=== PATIENT | female | born 1950 | race Caucasian/White ===

== ENCOUNTER 2018-10-01 10:36 | Emergency (ER) | payer MEDICARE, BC, SELFPAY ==
[2018-10-01 10:59] VITALS: BP 161/64; PULSE 74; RESP 20; TEMP 36.5; O2SAT 100; BMI 53.1
--- NOTE | 2018-10-01 11:34 | ED.NAVMDI ---
HPI - Nausea/Vomiting/Diarrhea <Isela Torres PA-C - Last Filed: 10/01/18 14:18> General Chief complaint: Nausea/Vomiting/Diarrhea Stated complaint: diarrhea, vomitting x 2days Time Seen by Provider: 10/01/18 11:34 Source: patient Mode of arrival: ambulatory Limitations: no limitations History of Present Illness HPI Narrative: This 68-year-old female states started to feel poorly ?like I ate too fast and too much? yesterday a couple of hours after eating a ham sandwich, chips. She went on her [place] bike ride and hike and was able to do that, but continued to have some upset stomach, then began to have watery diarrhea at about midnight, has had 4 or 5 episodes. She states that she drank a little water yesterday and has not kept any down since this started. She had 2 episodes of vomiting that started after the diarrhea, mostly watery material, 1st episode more profuse. She states she feels a little chilled, no known fevers. She denies any blood in the stools. She denies any new urinary symptoms. She denies any chest pain or dyspnea. She states she has not had any stream or well water, no recent antibiotics, no other travel aside from camping here. ate similar food yesterday but has not had the symptoms, though she has some stomach upset. Related Data Previous Rx's Medication Instructions Recorded ondansetron 4 mg PO Q6-8H PRN #7 tab 10/01/18 Review of Systems <Isela Torres PA-C - Last Filed: 10/01/18 14:18> Review of Systems ROS Unobtainable: All systems reviewed & are unremarkable except as noted in HPI and below PFSH <Isela Torres PA-C - Last Filed: 10/01/18 14:18> Medical History (Updated 10/01/18 @ 13:29 by Isela Torres PA-C) Hyperlipidemia (Chronic) Osteoarthritis (Chronic) Surgical History (Updated 10/01/18 @ 12:10 by Isela Torres PA-C) Status post THR (total hip replacement) (Resolved) Status post lumbar spine surgery for decompression of spinal cord (Resolved) Social History Smoking Status: Never smoker Social History Smoking Status: Never smoker Exam <Isela Torres PA-C - Last Filed: 10/01/18 14:18> Narrative Exam Narrative: GENERAL APPEARANCE: Patient sitting comfortably, in no distress. HEENT: PERRL, EOMI, no scleral icterus, conjunctivae pink NECK: Supple LUNGS: Clear to auscultation bilaterally. HEART: Rate and rhythm regular, normal S1 and S2, no S3 or S4. ABDOMEN: Soft, nontender, nondistended, bowel sounds present x 4 quadrants, no masses palpable, no hepatosplenomegaly. EXTREMITIES: No edema, no cyanosis DERMATOLOGIC: No jaundice or exanthem NEUROLOGIC: Alert and oriented with normal speech and coordination Initial Vital Signs Initial Vital Signs: Vital Signs Temperature 97.7 F 10/01/18 10:59 Pulse Rate 74 10/01/18 10:59 Respiratory Rate 20 10/01/18 10:59 Blood Pressure 161/64 H 10/01/18 10:59 Pulse Oximetry 100 10/01/18 10:59 <Yosvany Singh DO - Last Filed: 10/01/18 14:22> Initial Vital Signs Initial Vital Signs: Vital Signs Temperature 97.7 F 10/01/18 10:59 Pulse Rate 74 10/01/18 10:59 Respiratory Rate 20 10/01/18 10:59 Blood Pressure 161/64 H 10/01/18 10:59 Pulse Oximetry 100 10/01/18 10:59 Course <Isela Torres PA-C - Last Filed: 10/01/18 14:18> Additional Information: Patient is feeling significantly improved after Zofran and fluids, tolerating nikki marissa and saltines. She plans to return home today, agreed to return to ED if any acutely worsening symptoms again or new symptoms such as pain or fever Orders Ordered: ED Orders 10/01/18 11:30 Complete Blood Count AUTO DIFF Stat Comprehensive Metabolic Panel Stat Lipase Stat Partial Thromboplastin Time Stat Prothrombin Time INR Stat 10/01/18 11:52 EKG-12 Lead Stat 10/01/18 12:30 Urine Microscopic Stat Discontinued Medications Sodium Chloride (Normal Saline 0.9%) 1,000 mls @ 1,000 mls/hr IV BOLUS ONE Stop: 10/01/18 12:43 Last Infusion: 10/01/18 12:57 Dose: 0 mls/hr Admin: 10/01/18 11:54 Dose: 1,000 mls/hr Ondansetron HCl (Zofran) 4 mg IV NOW ONE Stop: 10/01/18 11:45 Last Admin: 10/01/18 11:54 Dose: 4 mg Vital Signs - 8 hr 10/01/18 10:59 10/01/18 13:07 Temperature 97.7 F Pulse Rate 74 73 Respiratory Rate 20 16 Blood Pressure 161/64 H Blood Pressure [Left Arm] 126/43 L Pulse Oximetry 100 100 <Yosvany Singh DO - Last Filed: 10/01/18 14:22> Orders Ordered: ED Orders 10/01/18 11:30 Complete Blood Count AUTO DIFF Stat Comprehensive Metabolic Panel Stat Lipase Stat Partial Thromboplastin Time Stat Prothrombin Time INR Stat 10/01/18 11:52 EKG-12 Lead Stat 10/01/18 12:30 Urine Microscopic Stat Discontinued Medications Sodium Chloride (Normal Saline 0.9%) 1,000 mls @ 1,000 mls/hr IV BOLUS ONE Stop: 10/01/18 12:43 Last Infusion: 10/01/18 12:57 Dose: 0 mls/hr Admin: 10/01/18 11:54 Dose: 1,000 mls/hr Ondansetron HCl (Zofran) 4 mg IV NOW ONE Stop: 10/01/18 11:45 Last Admin: 10/01/18 11:54 Dose: 4 mg Vital Signs - 8 hr 10/01/18 10:59 10/01/18 13:07 Temperature 97.7 F Pulse Rate 74 73 Respiratory Rate 20 16 Blood Pressure 161/64 H Blood Pressure [Left Arm] 126/43 L Pulse Oximetry 100 100 MDM - Nausea/Vomiting/Diarrhea <Isela Torres PA-C - Last Filed: 10/01/18 14:18> Lab Data Attestation: I reviewed the patient's lab results. Result diagrams: 10/01/18 11:30 10/01/18 11:30 Lab Results 10/01/18 10/01/18 10/01/18 Range/Units 11:30 11:30 11:30 WBC 7.4 (4.5-11.0) X10^3/uL RBC 4.82 (4.0-5.2) X10^6/uL Hgb 14.0 (12.0-16.0) g/dL Hct 40.8 (36-46) % MCV 84.8 (80-100) fL MCH 29.1 (26-34) PG MCHC 34.3 (30-36) % RDW 13.1 (11.6-14.8) % Plt Count 224 (150-400) X10^3/uL Neut % (Auto) 85.9 H (50-75) % Lymph % (Auto) 4.3 L (25-40) % [place] % (Auto) 9.4 (3-14) % Eos % (Auto) 0.1 L (2-4) % Baso % (Auto) 0.3 (0-2) % Neut # (Auto) 6400 (6669-3206) /uL Lymph # (Auto) 300 L (5682-1756) /uL [place] # (Auto) 700 (0-900) /uL Eos # (Auto) 0 (0-450) /uL Baso # (Auto) 0 (0-100) /uL PT 11.9 (10.1-12.7) SECONDS INR 1.0 (0.9-1.3) APTT 30 (26.4-36.2) SECONDS Sodium 140 (137-145) mmol/L Potassium 3.8 (3.4-5.1) mmol/L Chloride 103 (98-107) mmol/L Carbon Dioxide 25 (22-32) mmol/L BUN 17 (7-17) mg/dL Creatinine 0.80 (0.52-1.04) mg/dL Estimated GFR > 60.0 (>60) mL/min BUN/Creatinine Ratio 21.3 (6-22) Glucose 110 (80-110) mg/dL Calcium 9.9 (8.4-10.2) mg/dL Total Bilirubin 1.2 (0.2-1.3) mg/dL AST 33 (14-36) IU/L ALT 28 (9-52) IU/L Alkaline Phosphatase 71 (38-126) U/L Total Protein 7.5 (6.3-8.2) g/dL Albumin 4.7 (3.5-5.0) g/dL Globulin 2.8 (1.7-4.1) g/dL Albumin/Globulin Ratio 1.7 (1.0-2.8) Lipase 372 H (23-300) U/L Urine RBC (0-5/HPF) Urine WBC (0-5/HPF) Ur Squamous Epith Cells (0-5/HPF) Urine Bacteria (None) Ur Culture Indicated? 10/01/18 Range/Units 12:30 WBC (4.5-11.0) X10^3/uL RBC (4.0-5.2) X10^6/uL Hgb (12.0-16.0) g/dL Hct (36-46) % MCV (80-100) fL MCH (26-34) PG MCHC (30-36) % RDW (11.6-14.8) % Plt Count (150-400) X10^3/uL Neut % (Auto) (50-75) % Lymph % (Auto) (25-40) % [place] % (Auto) (3-14) % Eos % (Auto) (2-4) % Baso % (Auto) (0-2) % Neut # (Auto) (0781-2509) /uL Lymph # (Auto) (4372-7059) /uL [place] # (Auto) (0-900) /uL Eos # (Auto) (0-450) /uL Baso # (Auto) (0-100) /uL PT (10.1-12.7) SECONDS INR (0.9-1.3) APTT (26.4-36.2) SECONDS Sodium (137-145) mmol/L Potassium (3.4-5.1) mmol/L Chloride (98-107) mmol/L Carbon Dioxide (22-32) mmol/L BUN (7-17) mg/dL Creatinine (0.52-1.04) mg/dL Estimated GFR (>60) mL/min BUN/Creatinine Ratio (6-22) Glucose (80-110) mg/dL Calcium (8.4-10.2) mg/dL Total Bilirubin (0.2-1.3) mg/dL AST (14-36) IU/L ALT (9-52) IU/L Alkaline Phosphatase (38-126) U/L Total Protein (6.3-8.2) g/dL Albumin (3.5-5.0) g/dL Globulin (1.7-4.1) g/dL Albumin/Globulin Ratio (1.0-2.8) Lipase (23-300) U/L Urine RBC 1-5/hpf (0-5/HPF) Urine WBC 5-10/hpf H (0-5/HPF) Ur Squamous Epith Cells 5-10 /hpf H (0-5/HPF) Urine Bacteria None seen (None) Ur Culture Indicated? Cult not indicated Urine Dip Bedside Urine Glucose Negative Bedside Urine Bilirubin + 1 Bedside Urine Ketone +++ 80 Urine Specific Chloe 1.030 Bedside Urine Occult Blood +/- Bedside Urine pH 6.0 Bedside Urine Protein +/- 15 Bedside Urine Urobilinogen +/- 1mg Bedside Urine Nitrite - Negative Bedside Urine Leukocytes +/- 15 Esterase ECG Data Attestation: I personally reviewed and interpreted this ECG as follows: (Normal sinus rhythm, rate 69, normal axis) <Yosvany Singh DO - Last Filed: 10/01/18 14:22> Lab Data Lab Results 10/01/18 10/01/18 10/01/18 Range/Units 11:30 11:30 11:30 WBC 7.4 (4.5-11.0) X10^3/uL RBC 4.82 (4.0-5.2) X10^6/uL Hgb 14.0 (12.0-16.0) g/dL Hct 40.8 (36-46) % MCV 84.8 (80-100) fL MCH 29.1 (26-34) PG MCHC 34.3 (30-36) % RDW 13.1 (11.6-14.8) % Plt Count 224 (150-400) X10^3/uL Neut % (Auto) 85.9 H (50-75) % Lymph % (Auto) 4.3 L (25-40) % [place] % (Auto) 9.4 (3-14) % Eos % (Auto) 0.1 L (2-4) % Baso % (Auto) 0.3 (0-2) % Neut # (Auto) 6400 (0481-8900) /uL Lymph # (Auto) 300 L (2719-8910) /uL [place] # (Auto) 700 (0-900) /uL Eos # (Auto) 0 (0-450) /uL Baso # (Auto) 0 (0-100) /uL PT 11.9 (10.1-12.7) SECONDS INR 1.0 (0.9-1.3) APTT 30 (26.4-36.2) SECONDS Sodium 140 (137-145) mmol/L Potassium 3.8 (3.4-5.1) mmol/L Chloride 103 (98-107) mmol/L Carbon Dioxide 25 (22-32) mmol/L BUN 17 (7-17) mg/dL Creatinine 0.80 (0.52-1.04) mg/dL Estimated GFR > 60.0 (>60) mL/min BUN/Creatinine Ratio 21.3 (6-22) Glucose 110 (80-110) mg/dL Calcium 9.9 (8.4-10.2) mg/dL Total Bilirubin 1.2 (0.2-1.3) mg/dL AST 33 (14-36) IU/L ALT 28 (9-52) IU/L Alkaline Phosphatase 71 (38-126) U/L Total Protein 7.5 (6.3-8.2) g/dL Albumin 4.7 (3.5-5.0) g/dL Globulin 2.8 (1.7-4.1) g/dL Albumin/Globulin Ratio 1.7 (1.0-2.8) Lipase 372 H (23-300) U/L Urine RBC (0-5/HPF) Urine WBC (0-5/HPF) Ur Squamous Epith Cells (0-5/HPF) Urine Bacteria (None) Ur Culture Indicated? 10/01/18 Range/Units 12:30 WBC (4.5-11.0) X10^3/uL RBC (4.0-5.2) X10^6/uL Hgb (12.0-16.0) g/dL Hct (36-46) % MCV (80-100) fL MCH (26-34) PG MCHC (30-36) % RDW (11.6-14.8) % Plt Count (150-400) X10^3/uL Neut % (Auto) (50-75) % Lymph % (Auto) (25-40) % [place] % (Auto) (3-14) % Eos % (Auto) (2-4) % Baso % (Auto) (0-2) % Neut # (Auto) (5124-4507) /uL Lymph # (Auto) (4113-1225) /uL [place] # (Auto) (0-900) /uL Eos # (Auto) (0-450) /uL Baso # (Auto) (0-100) /uL PT (10.1-12.7) SECONDS INR (0.9-1.3) APTT (26.4-36.2) SECONDS Sodium (137-145) mmol/L Potassium (3.4-5.1) mmol/L Chloride (98-107) mmol/L Carbon Dioxide (22-32) mmol/L BUN (7-17) mg/dL Creatinine (0.52-1.04) mg/dL Estimated GFR (>60) mL/min BUN/Creatinine Ratio (6-22) Glucose (80-110) mg/dL Calcium (8.4-10.2) mg/dL Total Bilirubin (0.2-1.3) mg/dL AST (14-36) IU/L ALT (9-52) IU/L Alkaline Phosphatase (38-126) U/L Total Protein (6.3-8.2) g/dL Albumin (3.5-5.0) g/dL Globulin (1.7-4.1) g/dL Albumin/Globulin Ratio (1.0-2.8) Lipase (23-300) U/L Urine RBC 1-5/hpf (0-5/HPF) Urine WBC 5-10/hpf H (0-5/HPF) Ur Squamous Epith Cells 5-10 /hpf H (0-5/HPF) Urine Bacteria None seen (None) Ur Culture Indicated? Cult not indicated Urine Dip Bedside Urine Glucose Negative Bedside Urine Bilirubin + 1 Bedside Urine Ketone +++ 80 Urine Specific Chloe 1.030 Bedside Urine Occult Blood +/- Bedside Urine pH 6.0 Bedside Urine Protein +/- 15 Bedside Urine Urobilinogen +/- 1mg Bedside Urine Nitrite - Negative Bedside Urine Leukocytes +/- 15 Esterase Discharge Plan Departure Patient Disposition: Home Clinical Impression: Gastroenteritis Discharge Date/Time: 10/01/18 13:39 Interventions: ED Discharge Assessment Last Done: 10/01/18 13:38 Instructions: DI for Viral Gastroenteritis -- Adult, DI for Vomiting -- Adult Activity Restrictions/Additional Instructions: Please continue to sip clear fluids all day today, drink as much as possible. Take the antinausea medicine prescribed for you as needed (sent to [facility]). You can use Imodium if needed for diarrhea. If you want to eat today, try a very small amount of low residue food such as saltines, white rice, bananas, applesauce, or white toast every couple of hours to help with the nausea. Otherwise, you can start these foods tomorrow and gradually resume your normal diet. You should follow-up with your PCP if you are not feeling better over the next few days. Prescriptions: New ondansetron 4 mg tablet,disintegrating 4 mg PO Q6-8H PRN (Reason: nausea and vomiting) Qty: 7 RF: 0 Referrals: Kristi Odell [Other] <Yosvany Singh DO - Last Filed: 10/01/18 14:22> Cosign ED Attending Olgaature Attestation: I was available for consultation during this patient's emergency department encounter
[2018-10-01 11:38] LABS: Add Manual Diff / Slide Review NO; Basophils Absolute Auto 0 /uL (0-100); Basophils Percent Auto 0.3 % (0-2); Eosinophils Absolute Auto 0 /uL (0-450); Eosinophils Percent Auto 0.1 % (2-4); Hematocrit 40.8 % (36-46); Lymphocytes Absolute Auto 300 /uL (1100-4500); Lymphocytes Percent Auto 4.3 % (25-40); Mean Corpuscular HGB Conc 34.3 % (30-36); Mean Corpuscular Hemoglobin 29.1 PG (26-34); Mean Corpuscular Volume 84.8 fL (80-100); Monocytes Absolute Auto 700 /uL (0-900); Monocytes Percent Auto 9.4 % (3-14); Neutrophils Absolute Auto 6400 /uL (1500-7000); Neutrophils Percent Auto 85.9 % (50-75); Platelet Count 224 X10^3/uL (150-400); Red Blood Cell Count 4.82 X10^6/uL (4.0-5.2); Red Cell Distribution Width 13.1 % (11.6-14.8); White Blood Cell Count 7.4 X10^3/uL (4.5-11.0)
[2018-10-01 11:43] LABS: Prothrombin Time 11.9 SECONDS (10.1-12.7)
[2018-10-01 11:46] LABS: PTT Partial Thromboplastin Tim 30 SECONDS (26.4-36.2)
[2018-10-01 11:47] LABS: Alanine Aminotransferase 28 IU/L (9-52); Albumin 4.7 g/dL (3.5-5.0); Albumin Globulin Ratio 1.7 (1.0-2.8); Alkaline Phosphatase 71 U/L (38-126); Aspartate Aminotransferase 33 IU/L (14-36); BUN Creatinine Ratio 21.3 (6-22); Bilirubin Total 1.2 mg/dL (0.2-1.3); Blood Urea Nitrogen 17 mg/dL (7-17); Calcium 9.9 mg/dL (8.4-10.2); Carbon Dioxide 25 mmol/L (22-32); Chloride 103 mmol/L (98-107); Estimated Glomerular Filt Rate > 60.0 mL/min (>60); Globulin 2.8 g/dL (1.7-4.1); Glucose 110 mg/dL (80-110); HEMOLYSIS < 15 (0-50); Lipase 372 U/L (23-300); Potassium 3.8 mmol/L (3.4-5.1); Sodium 140 mmol/L (137-145); Total Protein 7.5 g/dL (6.3-8.2)
[2018-10-01] MEDS: SODIUM CHLORIDE 0.9% 1,000 ML 1000 ML IV (11:54)
[2018-10-01] MEDS: ONDANSETRON 4 MG/2 ML INJ IV (11:54)
--- NOTE | 2018-10-01 12:10 | ED_ITS ---
HPI - Nausea/Vomiting/Diarrhea <Isela Torres PA-C - Last Filed: 10/01/18 14:18> General Chief complaint: Nausea/Vomiting/Diarrhea Stated complaint: diarrhea, vomitting x 2days Time Seen by Provider: 10/01/18 11:34 Source: patient Mode of arrival: ambulatory Limitations: no limitations History of Present Illness HPI Narrative: This 68-year-old female states started to feel poorly ?like I ate too fast and too much? yesterday a couple of hours after eating a ham sandwich, chips. She went on her [place] bike ride and hike and was able to do that, but continued to have some upset stomach, then began to have watery diarrhea at about midnight, has had 4 or 5 episodes. She states that she drank a little water yesterday and has not kept any down since this started. She had 2 episodes of vomiting that started after the diarrhea, mostly watery material, 1st episode more profuse. She states she feels a little chilled, no known fevers. She denies any blood in the stools. She denies any new urinary symptoms. She denies any chest pain or dyspnea. She states she has not had any stream or well water, no recent antibiotics, no other travel aside from camping here. ate similar food yesterday but has not had the symptoms, though she has some stomach upset. Related Data Previous Rx's Medication Instructions Recorded ondansetron 4 mg PO Q6-8H PRN #7 tab 10/01/18 Review of Systems <Isela Torres PA-C - Last Filed: 10/01/18 14:18> Review of Systems ROS Unobtainable: All systems reviewed & are unremarkable except as noted in HPI and below PFSH <Isela Torres PA-C - Last Filed: 10/01/18 14:18> Medical History (Updated 10/01/18 @ 13:29 by Isela Torres PA-C) Hyperlipidemia (Chronic) Osteoarthritis (Chronic) Surgical History (Updated 10/01/18 @ 12:10 by Isela Torres PA-C) Status post THR (total hip replacement) (Resolved) Status post lumbar spine surgery for decompression of spinal cord (Resolved) Social History Smoking Status: Never smoker Social History Smoking Status: Never smoker Exam <Isela Torres PA-C - Last Filed: 10/01/18 14:18> Narrative Exam Narrative: GENERAL APPEARANCE: Patient sitting comfortably, in no distress. HEENT: PERRL, EOMI, no scleral icterus, conjunctivae pink NECK: Supple LUNGS: Clear to auscultation bilaterally. HEART: Rate and rhythm regular, normal S1 and S2, no S3 or S4. ABDOMEN: Soft, nontender, nondistended, bowel sounds present x 4 quadrants, no masses palpable, no hepatosplenomegaly. EXTREMITIES: No edema, no cyanosis DERMATOLOGIC: No jaundice or exanthem NEUROLOGIC: Alert and oriented with normal speech and coordination Initial Vital Signs Initial Vital Signs: Vital Signs Temperature 97.7 F 10/01/18 10:59 Pulse Rate 74 10/01/18 10:59 Respiratory Rate 20 10/01/18 10:59 Blood Pressure 161/64 H 10/01/18 10:59 Pulse Oximetry 100 10/01/18 10:59 <Yosvany Singh DO - Last Filed: 10/01/18 14:22> Initial Vital Signs Initial Vital Signs: Vital Signs Temperature 97.7 F 10/01/18 10:59 Pulse Rate 74 10/01/18 10:59 Respiratory Rate 20 10/01/18 10:59 Blood Pressure 161/64 H 10/01/18 10:59 Pulse Oximetry 100 10/01/18 10:59 Course <Isela Torres PA-C - Last Filed: 10/01/18 14:18> Additional Information: Patient is feeling significantly improved after Zofran and fluids, tolerating nikki marissa and saltines. She plans to return home today, agreed to return to ED if any acutely worsening symptoms again or new symptoms such as pain or fever Orders Ordered: ED Orders 10/01/18 11:30 Complete Blood Count AUTO DIFF Stat Comprehensive Metabolic Panel Stat Lipase Stat Partial Thromboplastin Time Stat Prothrombin Time INR Stat 10/01/18 11:52 EKG-12 Lead Stat 10/01/18 12:30 Urine Microscopic Stat Discontinued Medications Sodium Chloride (Normal Saline 0.9%) 1,000 mls @ 1,000 mls/hr IV BOLUS ONE Stop: 10/01/18 12:43 Last Infusion: 10/01/18 12:57 Dose: 0 mls/hr Admin: 10/01/18 11:54 Dose: 1,000 mls/hr Ondansetron HCl (Zofran) 4 mg IV NOW ONE Stop: 10/01/18 11:45 Last Admin: 10/01/18 11:54 Dose: 4 mg Vital Signs - 8 hr 10/01/18 10:59 10/01/18 13:07 Temperature 97.7 F Pulse Rate 74 73 Respiratory Rate 20 16 Blood Pressure 161/64 H Blood Pressure [Left Arm] 126/43 L Pulse Oximetry 100 100 <Yosvany Singh DO - Last Filed: 10/01/18 14:22> Orders Ordered: ED Orders 10/01/18 11:30 Complete Blood Count AUTO DIFF Stat Comprehensive Metabolic Panel Stat Lipase Stat Partial Thromboplastin Time Stat Prothrombin Time INR Stat 10/01/18 11:52 EKG-12 Lead Stat 10/01/18 12:30 Urine Microscopic Stat Discontinued Medications Sodium Chloride (Normal Saline 0.9%) 1,000 mls @ 1,000 mls/hr IV BOLUS ONE Stop: 10/01/18 12:43 Last Infusion: 10/01/18 12:57 Dose: 0 mls/hr Admin: 10/01/18 11:54 Dose: 1,000 mls/hr Ondansetron HCl (Zofran) 4 mg IV NOW ONE Stop: 10/01/18 11:45 Last Admin: 10/01/18 11:54 Dose: 4 mg Vital Signs - 8 hr 10/01/18 10:59 10/01/18 13:07 Temperature 97.7 F Pulse Rate 74 73 Respiratory Rate 20 16 Blood Pressure 161/64 H Blood Pressure [Left Arm] 126/43 L Pulse Oximetry 100 100 MDM - Nausea/Vomiting/Diarrhea <Isela Torres PA-C - Last Filed: 10/01/18 14:18> Lab Data Attestation: I reviewed the patient's lab results. Result diagrams: 10/01/18 11:30 10/01/18 11:30 Lab Results 10/01/18 10/01/18 10/01/18 Range/Units 11:30 11:30 11:30 WBC 7.4 (4.5-11.0) X10^3/uL RBC 4.82 (4.0-5.2) X10^6/uL Hgb 14.0 (12.0-16.0) g/dL Hct 40.8 (36-46) % MCV 84.8 (80-100) fL MCH 29.1 (26-34) PG MCHC 34.3 (30-36) % RDW 13.1 (11.6-14.8) % Plt Count 224 (150-400) X10^3/uL Neut % (Auto) 85.9 H (50-75) % Lymph % (Auto) 4.3 L (25-40) % Darke % (Auto) 9.4 (3-14) % Eos % (Auto) 0.1 L (2-4) % Baso % (Auto) 0.3 (0-2) % Neut # (Auto) 6400 (7775-2232) /uL Lymph # (Auto) 300 L (9668-2957) /uL Darke # (Auto) 700 (0-900) /uL Eos # (Auto) 0 (0-450) /uL Baso # (Auto) 0 (0-100) /uL PT 11.9 (10.1-12.7) SECONDS INR 1.0 (0.9-1.3) APTT 30 (26.4-36.2) SECONDS Sodium 140 (137-145) mmol/L Potassium 3.8 (3.4-5.1) mmol/L Chloride 103 (98-107) mmol/L Carbon Dioxide 25 (22-32) mmol/L BUN 17 (7-17) mg/dL Creatinine 0.80 (0.52-1.04) mg/dL Estimated GFR > 60.0 (>60) mL/min BUN/Creatinine Ratio 21.3 (6-22) Glucose 110 (80-110) mg/dL Calcium 9.9 (8.4-10.2) mg/dL Total Bilirubin 1.2 (0.2-1.3) mg/dL AST 33 (14-36) IU/L ALT 28 (9-52) IU/L Alkaline Phosphatase 71 (38-126) U/L Total Protein 7.5 (6.3-8.2) g/dL Albumin 4.7 (3.5-5.0) g/dL Globulin 2.8 (1.7-4.1) g/dL Albumin/Globulin Ratio 1.7 (1.0-2.8) Lipase 372 H (23-300) U/L Urine RBC (0-5/HPF) Urine WBC (0-5/HPF) Ur Squamous Epith Cells (0-5/HPF) Urine Bacteria (None) Ur Culture Indicated? 10/01/18 Range/Units 12:30 WBC (4.5-11.0) X10^3/uL RBC (4.0-5.2) X10^6/uL Hgb (12.0-16.0) g/dL Hct (36-46) % MCV (80-100) fL MCH (26-34) PG MCHC (30-36) % RDW (11.6-14.8) % Plt Count (150-400) X10^3/uL Neut % (Auto) (50-75) % Lymph % (Auto) (25-40) % Darke % (Auto) (3-14) % Eos % (Auto) (2-4) % Baso % (Auto) (0-2) % Neut # (Auto) (4245-7758) /uL Lymph # (Auto) (9561-0423) /uL Darke # (Auto) (0-900) /uL Eos # (Auto) (0-450) /uL Baso # (Auto) (0-100) /uL PT (10.1-12.7) SECONDS INR (0.9-1.3) APTT (26.4-36.2) SECONDS Sodium (137-145) mmol/L Potassium (3.4-5.1) mmol/L Chloride (98-107) mmol/L Carbon Dioxide (22-32) mmol/L BUN (7-17) mg/dL Creatinine (0.52-1.04) mg/dL Estimated GFR (>60) mL/min BUN/Creatinine Ratio (6-22) Glucose (80-110) mg/dL Calcium (8.4-10.2) mg/dL Total Bilirubin (0.2-1.3) mg/dL AST (14-36) IU/L ALT (9-52) IU/L Alkaline Phosphatase (38-126) U/L Total Protein (6.3-8.2) g/dL Albumin (3.5-5.0) g/dL Globulin (1.7-4.1) g/dL Albumin/Globulin Ratio (1.0-2.8) Lipase (23-300) U/L Urine RBC 1-5/hpf (0-5/HPF) Urine WBC 5-10/hpf H (0-5/HPF) Ur Squamous Epith Cells 5-10 /hpf H (0-5/HPF) Urine Bacteria None seen (None) Ur Culture Indicated? Cult not indicated Urine Dip Bedside Urine Glucose Negative Bedside Urine Bilirubin + 1 Bedside Urine Ketone +++ 80 Urine Specific [place] 1.030 Bedside Urine Occult Blood +/- Bedside Urine pH 6.0 Bedside Urine Protein +/- 15 Bedside Urine Urobilinogen +/- 1mg Bedside Urine Nitrite - Negative Bedside Urine Leukocytes +/- 15 Esterase ECG Data Attestation: I personally reviewed and interpreted this ECG as follows: (Normal sinus rhythm, rate 69, normal axis) <Yosvany Singh DO - Last Filed: 10/01/18 14:22> Lab Data Lab Results 10/01/18 10/01/18 10/01/18 Range/Units 11:30 11:30 11:30 WBC 7.4 (4.5-11.0) X10^3/uL RBC 4.82 (4.0-5.2) X10^6/uL Hgb 14.0 (12.0-16.0) g/dL Hct 40.8 (36-46) % MCV 84.8 (80-100) fL MCH 29.1 (26-34) PG MCHC 34.3 (30-36) % RDW 13.1 (11.6-14.8) % Plt Count 224 (150-400) X10^3/uL Neut % (Auto) 85.9 H (50-75) % Lymph % (Auto) 4.3 L (25-40) % Darke % (Auto) 9.4 (3-14) % Eos % (Auto) 0.1 L (2-4) % Baso % (Auto) 0.3 (0-2) % Neut # (Auto) 6400 (3708-4801) /uL Lymph # (Auto) 300 L (3568-1862) /uL Darke # (Auto) 700 (0-900) /uL Eos # (Auto) 0 (0-450) /uL Baso # (Auto) 0 (0-100) /uL PT 11.9 (10.1-12.7) SECONDS INR 1.0 (0.9-1.3) APTT 30 (26.4-36.2) SECONDS Sodium 140 (137-145) mmol/L Potassium 3.8 (3.4-5.1) mmol/L Chloride 103 (98-107) mmol/L Carbon Dioxide 25 (22-32) mmol/L BUN 17 (7-17) mg/dL Creatinine 0.80 (0.52-1.04) mg/dL Estimated GFR > 60.0 (>60) mL/min BUN/Creatinine Ratio 21.3 (6-22) Glucose 110 (80-110) mg/dL Calcium 9.9 (8.4-10.2) mg/dL Total Bilirubin 1.2 (0.2-1.3) mg/dL AST 33 (14-36) IU/L ALT 28 (9-52) IU/L Alkaline Phosphatase 71 (38-126) U/L Total Protein 7.5 (6.3-8.2) g/dL Albumin 4.7 (3.5-5.0) g/dL Globulin 2.8 (1.7-4.1) g/dL Albumin/Globulin Ratio 1.7 (1.0-2.8) Lipase 372 H (23-300) U/L Urine RBC (0-5/HPF) Urine WBC (0-5/HPF) Ur Squamous Epith Cells (0-5/HPF) Urine Bacteria (None) Ur Culture Indicated? 10/01/18 Range/Units 12:30 WBC (4.5-11.0) X10^3/uL RBC (4.0-5.2) X10^6/uL Hgb (12.0-16.0) g/dL Hct (36-46) % MCV (80-100) fL MCH (26-34) PG MCHC (30-36) % RDW (11.6-14.8) % Plt Count (150-400) X10^3/uL Neut % (Auto) (50-75) % Lymph % (Auto) (25-40) % Darke % (Auto) (3-14) % Eos % (Auto) (2-4) % Baso % (Auto) (0-2) % Neut # (Auto) (2526-4708) /uL Lymph # (Auto) (1602-5535) /uL Darke # (Auto) (0-900) /uL Eos # (Auto) (0-450) /uL Baso # (Auto) (0-100) /uL PT (10.1-12.7) SECONDS INR (0.9-1.3) APTT (26.4-36.2) SECONDS Sodium (137-145) mmol/L Potassium (3.4-5.1) mmol/L Chloride (98-107) mmol/L Carbon Dioxide (22-32) mmol/L BUN (7-17) mg/dL Creatinine (0.52-1.04) mg/dL Estimated GFR (>60) mL/min BUN/Creatinine Ratio (6-22) Glucose (80-110) mg/dL Calcium (8.4-10.2) mg/dL Total Bilirubin (0.2-1.3) mg/dL AST (14-36) IU/L ALT (9-52) IU/L Alkaline Phosphatase (38-126) U/L Total Protein (6.3-8.2) g/dL Albumin (3.5-5.0) g/dL Globulin (1.7-4.1) g/dL Albumin/Globulin Ratio (1.0-2.8) Lipase (23-300) U/L Urine RBC 1-5/hpf (0-5/HPF) Urine WBC 5-10/hpf H (0-5/HPF) Ur Squamous Epith Cells 5-10 /hpf H (0-5/HPF) Urine Bacteria None seen (None) Ur Culture Indicated? Cult not indicated Urine Dip Bedside Urine Glucose Negative Bedside Urine Bilirubin + 1 Bedside Urine Ketone +++ 80 Urine Specific [place] 1.030 Bedside Urine Occult Blood +/- Bedside Urine pH 6.0 Bedside Urine Protein +/- 15 Bedside Urine Urobilinogen +/- 1mg Bedside Urine Nitrite - Negative Bedside Urine Leukocytes +/- 15 Esterase Discharge Plan Departure Patient Disposition: Home Clinical Impression: Gastroenteritis Discharge Date/Time: 10/01/18 13:39 Interventions: ED Discharge Assessment Last Done: 10/01/18 13:38 Instructions: DI for Viral Gastroenteritis -- Adult, DI for Vomiting -- Adult Activity Restrictions/Additional Instructions: Please continue to sip clear fluids all day today, drink as much as possible. Take the antinausea medicine prescribed for you as needed (sent to [facility]). You can use Imodium if needed for diarrhea. If you want to eat today, try a very small amount of low residue food such as saltines, white rice, bananas, applesauce, or white toast every couple of hours to help with the nausea. Otherwise, you can start these foods tomorrow and gradually resume your normal diet. You should follow-up with your PCP if you are not feeling better over the next few days. Prescriptions: New ondansetron 4 mg tablet,disintegrating 4 mg PO Q6-8H PRN (Reason: nausea and vomiting) Qty: 7 RF: 0 Referrals: Kristi Odell [Other] <Yosvany Singh DO - Last Filed: 10/01/18 14:22> Cosign ED Attending Olgaature Attestation: I was available for consultation during this patient's emergency department encounter
[2018-10-01 12:53] LABS: Bacteria Urine None Seen
[2018-10-01 13:06] LABS: RBC Urine 1-5/HPF (0-5/HPF); Squamous Epithelial Cell Urine 5-10 /HPF (0-5/HPF); WBC Urine 5-10/HPF (0-5/HPF)
[2018-10-01 13:07] VITALS: BP 126/43; PULSE 73; RESP 16; O2SAT 100
[2018-10-01 13:07] LABS: Culture Indicated Urine Cult Not Indicated
== END 2018-10-01 13:39 | disposition home or self-care (01) ==
PROVIDERS: Emergency Medicine; Emergency Provider Internal Medicine
DX: K52.9 Noninfective gastroenteritis and colitis, unspecified (principal); R03.0 Elevated blood-pressure reading, without diagnosis of hypertension
CPT/HCPCS: 36591; 80053; 81003; 81015; 83690; 85025; 85610; 85730; 93005; 96361; 96374; 99283; 99284; J2405